=== PATIENT | female | born 1995 | race African-American/Black ===

== ENCOUNTER 2019-10-21 03:30 | Emergency (ER) | payer OTHER ==
[~2019-10-21] VITALS: Ht 162.6 cm; Wt 56.8 kg
[2019-10-21 04:44] LABS: BASO % 0.5 % (0.0-1.0); HEMATOCRIT 35.8 % (36.0-47.0); HEMOGLOBIN 11.9 g/dl (12.0-15.5); LYMPH # 2.6 10^3/uL (1.5-5.0); LYMPH % 64.9 % (24.0-44.0); MEAN CORPUSCULAR HEMOGLOBIN 29.3 pg (27.0-33.0); MEAN CORPUSCULAR HGB CONC 33.2 g/dl (32.0-36.5); MEAN CORPUSCULAR VOLUME 88.2 fl (80.0-96.0); MONO # 0.4 10^3/uL (0.0-0.8); MONO % 8.9 % (0.0-5.0); NEUTROPHILS % 24.5 % (36.0-66.0); PLATELET COUNT, AUTOMATED 173 10^3/uL (150-450); RED BLOOD COUNT 4.06 10^6/uL (4.00-5.40); WHITE BLOOD COUNT 4.1 10^3/uL (4.0-10.0)
[2019-10-21 04:48] LABS: INR 1.08; PROTHROMBIN TIME 13.7 SECONDS (11.8-14.0)
[2019-10-21] MEDS ORDERED: LORazepam 2 MG/ML VIAL IV STA ×3 (05:07→06:07)
[2019-10-21 05:13] LABS: ALBUMIN 3.7 GM/DL (3.2-5.2); ALT/SGPT 26 U/L (12-78); BILIRUBIN,DIRECT 0.2 MG/DL (0.0-0.2); BILIRUBIN,TOTAL 0.8 MG/DL (0.2-1.0); CK-MB VALUE MASS 1.1 NG/ML (<3.6); CPK CREATINE PHOSPHOKINASE 219 U/L (26-192); LIPASE 61 U/L (73-393); TOTAL PROTEIN 7.2 GM/DL (6.4-8.2); TROPONIN I < 0.02 NG/ML (< 0.10)
[2019-10-21] MEDS ORDERED: LORazepam 2 MG/ML VIAL As Ordered ONE (06:08)
[2019-10-21] MEDS ORDERED: KETOROLAC 30 MG/ML 1ML VIAL IV ONE (06:45)
--- NOTE | 2019-10-21 07:56 | ECGEPIP ---
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
[2019-10-21 08:00] LABS: D-DIMER QUANT < 270 ng/ml (<500)
--- NOTE | 2019-10-21 08:21 | REP ---
Portable chest x-ray: Single view. History: Chest pain. Findings: Monitoring electrodes overlie the chest. Lungs are well inflated and clear. The pleural angles are sharp. Heart size is normal. Pulmonary vasculature is not increased. Nipple jewelry is noted incidentally. Impression: No active disease. Electronically Signed by Tone Sorto MD 10/21/2019 08:12 A
[2019-10-21 08:26] LABS: AMPHETAMINES LEVEL URINE NEGATIVE (NEGATIVE); BARBITURATES URINE NEGATIVE (NEGATIVE); BENZODIAZEPINES URINE NEGATIVE (NEGATIVE); CANNABINOIDS URINE POSITIVE (NEGATIVE); COCAINE METABOLITE URINE NEGATIVE (NEGATIVE); METHADONE URINE NEGATIVE (NEGATIVE); OPIATES URINE NEGATIVE (NEGATIVE); PHENCYCLIDINE URINE NEGATIVE (NEGATIVE)
[2019-10-21 12:07] LABS: HCG, SERUM QUALITATIVE NEGATIVE (NEGATIVE)
[2019-10-21] MEDS ORDERED: SUCR1TA PO (14:01)
[2019-10-21] MEDS ORDERED: OMEP40CA97 PO (14:01)
[2019-10-21] MEDS ORDERED: Holter Monitor (14:03)
[2019-10-21 14:23] VITALS: BP 106/53
== END 2019-10-21 14:30 | disposition home or self-care (01) ==
LOC: M ED 03:30
DX: R00.2 Palpitations (principal); F41.1 Generalized anxiety disorder; Z87.440 Personal history of urinary (tract) infections; F17.210 Nicotine dependence, cigarettes, uncomplicated; F12.10 Cannabis abuse, uncomplicated
CPT/HCPCS: 71045; 80047; 80076; 80307; 81001; 82550; 82553; 83690; 83735; 84484; 84703; 85025; 85379; 85610; 87486; 87581; 87633; 87798; 93005; 93041; 94760; 99285; J1885; J2060

== ENCOUNTER → 2019-10-21 | Outpatient (CLI) | payer OTHER ==
[~2019-10-21] MED LIST: Holter Monitor; OMEP40CA97 PO; SUCR1TA PO
--- NOTE | 2019-10-31 16:12 | HOLTMON ---
[facility] Test Date: 2019-10-21 Pat Name: ELIGIO RIDLEY Department: Room: - Gender: Female Sales Representative Facility Services: Alee Dykes/TEE SORIANO : 1995 Requested By: LUIZ De Souza Order Number: [id number] Reading MD: Adama Bauer Interpretive Statements THIS PATIENT STATES SHE HAS NO PHYSICIAN THAT WE CAN SEND THIS REPORT TO. THE HOLTER WAS ORDERED BY THE EMERGENCY ROOM MD. SHE ALSO PROVIDED NO DIARY, SO NOT SURE IF SHE FELT SYMPTOMS OR NOT. Normal sinus rhythm with a maximum heart of 115 bpm noted at 5:40:00 PM and a minimum rate of 39 BPM at 11:54:26 PM. No activity reported with the maximum and/or minimum heart rate. Benign sinus arrhythmia noted. Very rare isolated PACs. No supraventricular run. No PVCs. No Pauses. No symptoms reported. Electronically Signed on 10-31-2019 16:12:16 EDT by Adama Bauer
== END ==
LOC: M EKG 14:33
PROVIDERS: ATTEND Internal Medicine
DX: R00.2 Palpitations (principal)

== ENCOUNTER 2019-11-16 11:04 | Emergency (ER) | payer OTHER ==
[~2019-11-16] VITALS: Ht 162.6 cm; Wt 54.5 kg
[2019-11-16 11:04] VITALS: BP 120/56
[2019-11-16] MEDS ORDERED: FLAG500T PO (12:11)
[2019-11-16 13:13] LABS: CHLAMYDIA DNA AMPLIFICATION NEGATIVE (NEGATIVE); GC DNA AMPLIFICATION NEGATIVE (NEGATIVE)
== END 2019-11-16 12:17 | disposition home or self-care (01) ==
LOC: M ED 11:04
DX: Z32.01 Encounter for pregnancy test, result positive (principal); N76.0 Acute vaginitis; A59.01 Trichomonal vulvovaginitis; F41.9 Anxiety disorder, unspecified; F17.210 Nicotine dependence, cigarettes, uncomplicated

== ENCOUNTER → 2019-12-23 | Outpatient (CLI) | payer OTHER ==
[~2019-12-23] MED LIST changes: +FLAG500T PO
[2019-12-23 16:41] LABS: BASO % 0.2 % (0.0-1.0); EOS % 0.8 % (0.0-3.0); HEMATOCRIT 38.6 % (36.0-47.0); HEMOGLOBIN 13.3 g/dl (12.0-15.5); LYMPH # 1.7 10^3/uL (1.5-5.0); LYMPH % 34.3 % (24.0-44.0); MEAN CORPUSCULAR HEMOGLOBIN 31.5 pg (27.0-33.0); MEAN CORPUSCULAR HGB CONC 34.5 g/dl (32.0-36.5); MEAN CORPUSCULAR VOLUME 91.5 fl (80.0-96.0); MONO # 0.6 10^3/uL (0.0-0.8); MONO % 11.1 % (0.0-5.0); NEUTROPHILS # 2.7 10^3/uL (1.5-8.5); NEUTROPHILS % 53.4 % (36.0-66.0); PLATELET COUNT, AUTOMATED 181 10^3/uL (150-450); RED BLOOD COUNT 4.22 10^6/uL (4.00-5.40)
[2019-12-23 18:21] LABS: CHLAMYDIA DNA AMPLIFICATION NEGATIVE (NEGATIVE); GC DNA AMPLIFICATION NEGATIVE (NEGATIVE)
[2019-12-23 18:28] LABS: HEPATITIS C VIRUS ABY INDEX 0.2 INDEX (<0.8); HIV 1&2 SCREEN CENTAUR NEGATIVE (NEGATIVE)
== END ==
LOC: M PLALAB 13:50
PROVIDERS: ATTEND Advanced Practice Midwife
DX: Z34.91 Encounter for supervision of normal pregnancy, unspecified, first trimester (principal)